=== PATIENT | male | born 1995 | race Two or more races ===

== ENCOUNTER 2021-10-22 12:13 | Emergency (ER) | payer BC, MEDICAID ==
[~2021-10-22] VITALS: Ht 170.2 cm; Wt 64.9 kg
[2021-10-22 14:44] VITALS: BP 109/67
== END 2021-10-22 16:00 | disposition home or self-care (01) ==
LOC: ER 12:13
DX: R07.81 Pleurodynia (principal); R10.11 Right upper quadrant pain; Z20.822 Contact with and (suspected) exposure to COVID-19
CPT/HCPCS: 36415; 71046; 74176; 87426